=== PATIENT | female | born 1955 | race Caucasian/White ===

== ENCOUNTER 2021-07-16 16:32 | Outpatient (CLI) | payer MEDICARE ==
[2021-07-16 17:48] LABS: Hemoglobin 13.6 g/dL (12.0-15.5); Mean Corpuscular HGB CONC 33.4 g/dL (32.0-36.0); Mean Corpuscular Hemoglobin 30.4 pg (27.0-33.0); Mean Corpuscular Volume 91.1 fl (81.6-98.3); Mean Platelet Volume 10.7 fl (7.4-10.4); Platelet Count 341 10x3/uL (150-450); RBC Distribution Width 13.1 % (11.5-14.5); Red Blood Cell (RBC) Count 4.47 10x6/uL (3.90-5.03)
[2021-07-16 18:01] LABS: ALT (SGPT) 24 U/L (8-55); AST (SGOT) 30 U/L (5-34); Albumin 4.5 g/dL (3.4-4.8); Alkaline Phosphatase 84 U/L (40-110); Anion Gap 16 mmol/L (10-20); BUN (Urea Nitrogen) 12 mg/dL (9.8-20.1); Bilirubin, Direct 0.2 mg/dL (0.1-0.3); Bilirubin, Total 0.5 mg/dL (0.2-1.2); Calc. Creatinine Clearance 0 mL/min (70-130); Calcium 9.4 mg/dL (7.8-10.44); Carbon Dioxide 23 mmol/L (23-31); Chloride 105 mmol/L (98-107); Globulin 2.6 g/dL (2.4-3.5); Glucose 91 mg/dL (80-115); Potassium 4.2 mmol/L (3.5-5.1); Protein, Total 7.1 g/dL (5.8-8.1); Sodium 140 mmol/L (136-145)
[2021-07-17 08:46] LABS: SARS-CoV-2 PCR by NAA Not Detected (NotDetected)
== END 2021-07-16 16:33 | disposition home or self-care (01) ==
LOC: CSHLAB 16:32
PROVIDERS: ATTEND Student in an Organized Health Care Education/Training Program
DX: Z01.818 Encounter for other preprocedural examination (principal); Z20.822 Contact with and (suspected) exposure to COVID-19
CPT/HCPCS: 80053; 80076; 85027; 86850; 86900; 86901; 93005; 93010; U0003; U0005

== ENCOUNTER 2021-07-21 06:41 | Day surgery (SDC) | payer MEDICARE ==
[2021-07-16 17:48] LABS: Hemoglobin 13.6 g/dL (12.0-15.5); Mean Corpuscular HGB CONC 33.4 g/dL (32.0-36.0); Mean Corpuscular Hemoglobin 30.4 pg (27.0-33.0); Mean Corpuscular Volume 91.1 fl (81.6-98.3); Mean Platelet Volume 10.7 fl (7.4-10.4); Platelet Count 341 10x3/uL (150-450); RBC Distribution Width 13.1 % (11.5-14.5); Red Blood Cell (RBC) Count 4.47 10x6/uL (3.90-5.03)
[2021-07-16 18:01] LABS: ALT (SGPT) 24 U/L (8-55); AST (SGOT) 30 U/L (5-34); Albumin 4.5 g/dL (3.4-4.8); Alkaline Phosphatase 84 U/L (40-110); Anion Gap 16 mmol/L (10-20); BUN (Urea Nitrogen) 12 mg/dL (9.8-20.1); Bilirubin, Direct 0.2 mg/dL (0.1-0.3); Bilirubin, Total 0.5 mg/dL (0.2-1.2); Calc. Creatinine Clearance 0 mL/min (70-130); Calcium 9.4 mg/dL (7.8-10.44); Carbon Dioxide 23 mmol/L (23-31); Chloride 105 mmol/L (98-107); Globulin 2.6 g/dL (2.4-3.5); Glucose 91 mg/dL (80-115); Potassium 4.2 mmol/L (3.5-5.1); Protein, Total 7.1 g/dL (5.8-8.1); Sodium 140 mmol/L (136-145)
[2021-07-17 08:46] LABS: SARS-CoV-2 PCR by NAA Not Detected (NotDetected)
[2021-07-20 11:49] VITALS: BMI 31.8
[2021-07-21] MEDS ORDERED: Lidocaine 1% w/Epinephrine 1:200K 30 ML VIAL ONE (06:59)
[2021-07-21] MEDS ORDERED: Bupivacaine PF 0.5% 30 ML VIAL ONE (06:59)
[2021-07-21] MEDS ORDERED: EPINEPHrine 1 MG/ML AMP ONE (06:59)
[2021-07-21] MEDS ORDERED: Lidocaine 1% MPF 2 ML VIAL ONE (07:57)
[2021-07-21] MEDS ORDERED: Gabapentin 300 MG CAP ONE (07:57)
[2021-07-21] MEDS ORDERED: CeleCOXIB 100 MG CAP ONE (07:57)
[2021-07-21] MEDS ORDERED: Famotidine/PF 20 mg/2ml Vial ONE (07:58)
[2021-07-21] MEDS ORDERED: Levofloxacin 500 mg/D5W 100 ml Premix Bag ONE (07:59)
[2021-07-21] MEDS ORDERED: PROPOFOL 20 ML ONE (08:42)
[2021-07-21] MEDS ORDERED: Dexamethasone 4 mg/ml Vial ONE (08:42)
[2021-07-21] MEDS ORDERED: Rocuronium Bromide 10 MG/ML (10ML VIAL) ONE (08:42)
[2021-07-21] MEDS ORDERED: Glycopyrrolate 0.2 MG/ML 5 ML SYRINGE ONE (08:42)
[2021-07-21] MEDS ORDERED: Ondansetron PF 4 MG/2 ML Vial ONE (08:42)
[2021-07-21] MEDS ORDERED: Lidocaine 2% PF 5 ML VIAL ONE (08:42)
[2021-07-21] MEDS ORDERED: Fentanyl 100 MCG/2 ML VIAL ONE ×2 (08:42→11:55)
[2021-07-21] MEDS ORDERED: PHENYLEPHRINE-NS 100 MCG/ML 10 ML SYRINGE ONE (10:55)
[2021-07-21] MEDS ORDERED: Simethicone Chewable 80 MG TAB PO PRN (11:37)
[2021-07-21] MEDS ORDERED: Promethazine HCl 25 MG/ML VIAL IM PRN (11:37)
[2021-07-21] MEDS ORDERED: Ondansetron PF 4 MG/2 ML Vial IVP PRN (11:37)
[2021-07-21] MEDS ORDERED: Bisacodyl 10 MG SUPP PR PRN (11:37)
[2021-07-21] MEDS ORDERED: HYDROcodone/Acetaminophen 5/325 mg Tablet PO PRN ×2 (11:37)
[2021-07-21] MEDS ORDERED: diphenhydrAMINE 25 MG CAP PO PRN (11:37)
[2021-07-21] MEDS ORDERED: Fentanyl 100 MCG/2 ML VIAL SLOW IVP PRN (11:37)
[2021-07-21] MEDS ORDERED: Zolpidem Tartrate 5 MG TAB PO PRN (11:37)
[2021-07-21] MEDS: Ketorolac Tromethamine 30 MG/ML VIAL IVP SCH ×3 (12:55→23:55)
[2021-07-22 05:39] LABS: Hemoglobin 11.6 g/dL (12.0-15.5); Mean Corpuscular HGB CONC 33.7 g/dL (32.0-36.0); Mean Corpuscular Hemoglobin 30.8 pg (27.0-33.0); Mean Corpuscular Volume 91.2 fl (81.6-98.3); Mean Platelet Volume 10.2 fl (7.4-10.4); Platelet Count 287 10x3/uL (150-450); Red Blood Cell (RBC) Count 3.77 10x6/uL (3.90-5.03); White Blood Cell (WBC) Count 11.1 10x3/uL (3.5-10.5)
[2021-07-22] MEDS: Ketorolac Tromethamine 30 MG/ML VIAL IVP SCH (05:55)
[2021-07-22 07:49] VITALS: BP 131/62; TEMP 98.3
[2021-07-22] MEDS ORDERED: Aspirin 81 mg Enteric Coated Tablet PO SCH (09:00)
[2021-07-22] MEDS ORDERED: Venlafaxine HCl XR 75 MG CAP PO SCH (09:00)
[2021-07-22] MEDS ORDERED: Amlodipine 5 MG TAB PO SCH (09:00)
[2021-07-22] MEDS ORDERED: Lisinopril 20 MG TAB PO SCH (09:00)
[2021-07-22] MEDS ORDERED: Calcium Carbonate 600 MG + Vit D TAB PO SCH (09:00)
[2021-07-26] MEDS ORDERED: Ibuprofen 800 MG TAB PO SCH (22:00)
== END 2021-07-22 09:26 | disposition home or self-care (01) ==
LOC: CSHSDC 06:41 → UNDOADMIN 12:42 → CSHPED 12:42 → CSHSDC 07-22 09:26 → UNDODISIN 07-22 09:26
PROVIDERS: ATTEND Student in an Organized Health Care Education/Training Program
PROC: 0UT94ZZ Resection of Uterus, Percutaneous Endoscopic Approach (ICD-10-PCS; principal; 2021-07-21)
PROC: 0UT24ZZ Resection of Bilateral Ovaries, Percutaneous Endoscopic Approach (ICD-10-PCS; 2021-07-21)
PROC: 0UT74ZZ Resection of Bilateral Fallopian Tubes, Percutaneous Endoscopic Approach (ICD-10-PCS; 2021-07-21)
PROC: 0TSD4ZZ Reposition Urethra, Percutaneous Endoscopic Approach (ICD-10-PCS; 2021-07-21)
PROC: 0JQC0ZZ Repair Pelvic Region Subcutaneous Tissue and Fascia, Open Approach (ICD-10-PCS; 2021-07-21)
DX: N81.2 Incomplete uterovaginal prolapse (principal); D25.9 Leiomyoma of uterus, unspecified; N73.6 Female pelvic peritoneal adhesions (postinfective); N39.3 Stress incontinence (female) (male); I10 Essential (primary) hypertension; Z88.0 Allergy status to penicillin; Z79.82 Long term (current) use of aspirin; Z79.899 Other long term (current) drug therapy; Z90.49 Acquired absence of other specified parts of digestive tract; Z98.51 Tubal ligation status
CPT/HCPCS: 57260; 57288; 57425; 58571; 80053; 80076; 85027 ×2; 86850; 86900; 86901; C1781; U0003; U0005; 36415; 88307; J0171; J0690; J1100; J1885; J1956; J2001; J2405; J2704; J3010; S0020; S0028